=== PATIENT | male | born 1955 | race Caucasian/White ===

== ENCOUNTER → 2021-04-02 09:14 | Outpatient (CLI) | payer MEDICARE, OTHER, SELFPAY ==
[2021-04-02 09:50] LABS: Allen Test Positive; Base Excess 4 mmol/L (-2 to +2); Bicarbonate 28.5 mmol/L (22-26); Blood Gas Specimen Type ART; FI02 21; PO2 90 mmHG (75-100); SITE R Radial; SO2 97 % (95-99); Total Carbon Dioxide 30 mmol/L; pCO2 44.2 mmHg (35-45); pH 7.42 (7.35-7.45)
--- NOTE | 2021-04-04 08:46 | PFT ---
INTRODUCTION: The patient is a 65-year-old male that presents for pulmonary function studies secondary to a diagnosis of ALS. Respiratory therapy reported that the patient was very weak throughout testing. Bronchodilators were used during testing. INTERPRETATION: Forced expiration spirometry demonstrates no evidence of a large airways obstructive ventilatory defect. FEV1 and FVC were both symmetrically reduced. There was no significant bronchodilator response. Spirograms are of poor quality and terminate prior to 6 seconds, likely underestimating FVC. Body plethysmography was performed and revealed a decreased TLC to 4.6 L, 73% of predicted, indicative of a mild restrictive ventilatory impairment. Diffusing capacity was unable to be obtained. MIP and MEP were both significantly reduced. IMPRESSION: Mild restrictive ventilatory impairment with significant reduction in FVC and significantly reduced MIP/MEP.
== END ==
PROVIDERS: PCP Student in an Organized Health Care Education/Training Program; Referring Provider Internal Medicine Critical Care Medicine; Visit Provider Internal Medicine Critical Care Medicine
DX: G12.21 Amyotrophic lateral sclerosis (principal); J96.01 Acute respiratory failure with hypoxia
CPT/HCPCS: 36600; 82803; 94060; 94726; 97162

== ENCOUNTER 2021-07-05 13:10 | Outpatient (CLI) | payer MEDICARE, OTHER, SELFPAY ==
--- NOTE | 2021-07-05 14:48 | PFTCOMP_ITS ---
COMPLETE PULMONARY FUNCTION TEST INTERPRETATION Brief HPI: Patient is a 65 year old male, currently under the care of Dr. Holt, who presents to [facility] for complete pulmonary function tests secondary to diagnosis of ALS. Respiratory therapist reports good effort and reproducible results. Interpretation: Forced expiration spirometry shows no large airways obstructive ventilatory defect with an FEV1 of 46% predicted. There was no bronchodilator response tested. Spirograms are of poor quality and do not plateau, likely underestimating FVC. The respiratory flow volume loop shows a normal pattern. Lung volumes by body plethysmography show a decreased total lung capacity at 3.68 L, 58% predicted. FRC and RV are elevated out of proportion. Lung volume measurements are consistent with air-trapping. The patient was unable to complete the DLCO maneuver. The airway resistance is elevated. The patient's MIP was 19 and MEP was 11. Patient was noted to have difficulty holding a seal during the MEP procedure, but this is significantly reduced from previous values of 16 and 23 respectively. Compared to previous pulmonary function tests from 04/02/2021, there is been a significant reduction in lung volumes. Impression: Moderately severe restrictive ventilatory defect with some decrease in muscle strength in lung volumes compared to previous
== END 2021-07-05 23:59 | disposition home or self-care (01) ==
LOC: PSN 13:11
PROVIDERS: PCP Student in an Organized Health Care Education/Training Program; Referring Provider Internal Medicine Critical Care Medicine; Visit Provider Internal Medicine Critical Care Medicine
DX: G12.21 Amyotrophic lateral sclerosis (principal); J96.10 Chronic respiratory failure, unspecified whether with hypoxia or hypercapnia
CPT/HCPCS: 94010; 94726; 97162